=== PATIENT | female | born 1980 | race Caucasian/White ===

== ENCOUNTER 2018-02-09 07:20 | Day surgery (SDC) | payer OTHER | END 2018-02-09 12:20 | disposition home or self-care (01) | LOC: AMB-ENDOS 07:20 | DX: K29.30 Chronic superficial gastritis without bleeding (principal); K31.7 Polyp of stomach and duodenum; K44.9 Diaphragmatic hernia without obstruction or gangrene ==

== ENCOUNTER 2020-07-23 21:50 | Emergency (ER) | payer OTHER ==
[~2020-07-23] VITALS: Ht 157.5 cm; Wt 77.6 kg
== END 2020-07-24 11:01 | disposition home or self-care (01) ==
LOC: ER 21:50
DX: R10.12 Left upper quadrant pain (principal)

== ENCOUNTER 2020-08-04 07:42 | Outpatient (CLI) | payer OTHER ==
[2020-08-19] MEDS ORDERED: TAMS0.4C PO (11:05)
[2020-08-19] MEDS ORDERED: TRAMADOL PO (11:06)
== END 2020-08-04 07:50 | disposition home or self-care (01) ==
LOC: RAD 07:42
PROVIDERS: ATTEND Urology
DX: N20.1 Calculus of ureter (principal)

== ENCOUNTER 2020-08-20 06:02 | Day surgery (SDC) | payer OTHER ==
[~2020-08-20 06:02] MED LIST: TAMS0.4C PO; TRAMADOL PO
== END 2020-08-20 12:00 | disposition home or self-care (01) ==
LOC: CIR.AMB 06:02
PROVIDERS: ATTEND Urology
DX: N13.5 Crossing vessel and stricture of ureter without hydronephrosis (principal); N20.1 Calculus of ureter; Z20.822 Contact with and (suspected) exposure to COVID-19

== ENCOUNTER 2020-09-05 09:50 | Outpatient (CLI) | payer OTHER | END 2020-09-05 10:03 | disposition home or self-care (01) | LOC: RAD 09:50 | PROVIDERS: ATTEND Urology | DX: N20.1 Calculus of ureter (principal) ==

== ENCOUNTER → 2020-10-20 09:37 | Outpatient (CLI) | payer OTHER | END | disposition home or self-care (01) | LOC: LAB 09:37 | PROVIDERS: ATTEND Urology | DX: N20.1 Calculus of ureter (principal) ==

== ENCOUNTER → 2020-10-21 14:38 | Outpatient (CLI) | payer OTHER | END | disposition home or self-care (01) | LOC: LAB 14:38 | PROVIDERS: ATTEND Urology | DX: N20.1 Calculus of ureter (principal) ==

== ENCOUNTER 2020-12-16 09:21 | Outpatient (CLI) | payer OTHER | END 2020-12-16 09:26 | disposition home or self-care (01) | LOC: NUCLEAR 09:21 | PROVIDERS: ATTEND Internal Medicine Cardiovascular Disease | DX: I87.2 Venous insufficiency (chronic) (peripheral) (principal) ==

== ENCOUNTER 2021-08-23 00:11 | Emergency (ER) | payer OTHER ==
[~2021-08-23] VITALS: Ht 157.5 cm; Wt 63.5 kg
[2021-08-23] MEDS ORDERED: NORFLEX100MG PO (06:30)
[2021-08-23] MEDS ORDERED: AZITHROMYCIN500 MG PO (06:30)
[2021-08-23] MEDS ORDERED: KETO10TA2 PO (06:30)
== END 2021-08-23 06:37 | disposition home or self-care (01) ==
LOC: ER 00:11
DX: R07.89 Other chest pain (principal); R51.9 Headache, unspecified; R11.0 Nausea; R42 Dizziness and giddiness; M79.601 Pain in right arm

== ENCOUNTER → 2022-06-03 | Outpatient (CLI) | payer OTHER ==
[~2022-06-03] MED LIST changes: +AZITHROMYCIN500 MG PO; +KETO10TA2 PO; +NORFLEX100MG PO
== END | disposition home or self-care (01) ==
LOC: RAD 09:28
PROVIDERS: ATTEND Urology
DX: N20.1 Calculus of ureter (principal)

== ENCOUNTER 2022-07-13 12:19 | Outpatient (CLI) | payer OTHER | END 2022-07-13 12:24 | disposition home or self-care (01) | LOC: TOM 12:19 | PROVIDERS: ATTEND Urology | DX: N20.1 Calculus of ureter (principal) ==